=== PATIENT | male | born 1960 | race Caucasian/White ===

== ENCOUNTER 2019-05-15 09:52 | Emergency (ER) | payer BC, OTHER ==
--- OUTSIDE RECORDS SUMMARY | 2019-05-15 10:56 | XMS REPORT | Continuity of Care Document ---
:1960 External Reference #:[id number] Author Name FROY [place] (transmitted by agent of provider Hemalatha Yusuf) Address [address] [place] [address] Care Team Providers Name Role Phone Orion Milner MD - Internal Medicine Care Team Information Land Sales Agent Catrachito Chinchilla MD - Gastroenterology Care Team Information Land Sales Agent [phone] Kraig Sanford MD - Care Team Information Land Sales Agent [phone] [facility] - Physical Care Team Information Land Sales Agent [phone] Medicine & Rehabilitation Kay Kerns PA - Physician Marine Underwriter Care Team Information Land Sales Agent [phone] Problems Active Problems Provider Date Type 2 diabetes mellitus Onset: 11/26/2017 Gout Onset: 09/07/2013 Essential hypertension Onset: 03/30/2013 Hyperlipidemia Onset: 03/30/2013 Peptic reflux disease Onset: 03/30/2013 Acute respiratory failure FROY [place] Onset: 06/05/2018 Sepsis FROY [place] Onset: 06/05/2018 History of alcohol abuse FROY [place] Onset: 06/24/2018 Social History Type Date Description Comments Sex Unknown ETOH Use Currently consumes 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 Tobacco Use Start: Unknown Patient is a former End Date: 2004 (age End: Unknown smoker 15 years) Recreational Drug Use Denies Drug Use Smoking Status Reviewed: 05/10/19 Patient is a former End Date: 2004 (age smoker 15 years) Exercise Type/Frequency Exercises sporadically Allergies, Adverse Reactions, Alerts Description No Known Drug Allergies Medications Active Medications SIG Qnty Indications Ordering Provider Date Metformin HCL ER 3 by mouth every 30tabs Mauri 12/27/2015 750mg day MD David Tablets ER 24HR Diovan 1 by mouth every 90tabs E11.9 Mauri 09/07/2013 320mg Tablets day MD David Allopurinol Take 1 Tablet 90tabs M10.9 Mauri 09/07/2013 300mg Daily MD David Tablets Crestor take 1 tablet by 90tabs E78.5 Mauri 08/19/2011 10mg Tablets mouth every day MD David Immunizations CPT Code Status Date Vaccine Lot # [id number] Given 02/17/2009 Tdap - Tetanus/Diptheria/Acellular Pertussis Vital Signs Date Vital Result Comment 05/10/2019 3:44pm Weight 177.44 lb BP Systolic Sitting 124 mmHg BP Diastolic Sitting 70 mmHg 12/23/2018 3:36pm Height 66.6 inches 5'6.60" Weight 178.38 lb BP Systolic Sitting 130 mmHg BP Diastolic Sitting 70 mmHg Respiratory Rate 12 /min Body Temperature 99.0 F BMI (Body Mass Index) 28.3 kg/m2 Results Description No Information Available Procedures Date Code Description Status 06/17/2011 97617732 Colonoscopy Completed Medical Devices Description No Information Available Encounters Type Date Location Provider Dx Diagnosis Office Visit 12/23/2018 [facility] FROY [place] Z00.01 Encounter for 3:30p general adult medical exam w abnormal findings E11.9 Type 2 diabetes mellitus without complications M10.00 Idiopathic gout, unspecified site E78.5 Hyperlipidemia, unspecified I10 Essential (primary) hypertension Z12.11 Encounter for screening for malignant neoplasm of colon Assessments Date Code Description Provider 05/10/2019 E78.5 Hyperlipidemia, unspecified FROY Montana 05/10/2019 I10 Essential (primary) hypertension FROY Montana 05/10/2019 M10.00 Idiopathic gout, unspecified site FROY Montana 05/10/2019 E11.8 Diabetes mellitus FROY Montana 05/10/2019 J06.9 Upper respiratory infection FROY Montana 12/23/2018 Z00.01 Encounter for general adult medical examination with FROY Montana abnormal findings 12/23/2018 E11.9 Type 2 diabetes mellitus without complications FROY Montana 12/23/2018 M10.00 Idiopathic gout, unspecified site FROY [place] 12/23/2018 E78.5 Hyperlipidemia, unspecified FROY Montana 12/23/2018 I10 Essential (primary) hypertension FROY [place] 12/23/2018 Z12.11 Encounter for screening for malignant neoplasm of FROY Montana colon Plan of Treatment Future Appointment(s):09/08/2019 3:45 pm - FROY Montana at [facility] - Kay Kerns PAE78.5 Hyperlipidemia, [id number] Essential (primary) hypertensionFollow up:3 TO 4 [id number] Idiopathic gout, unspecified siteE11.8 Diabetes mellitusNew Labs:Basic Metabolic Panel, Ordered: 05/10/19Hemoglobin A1c (Glyco HGB), Ordered: 05/10/19J06.9 Upper respiratory infection Functional Status Description No Information Available Mental Status Description No Information Available Referrals Description No Information Available
[2019-05-15 11:44] LABS: Influenza B Molecular POSITIVE (Negative)
--- NOTE | 2019-05-15 12:05 | UC ---
Respiratory Complaint HPI - HPI Summary HPI Summary: Per central communications specialist: "CORLEY, cough, pain with cough, runny nose, fever, body aches" -here w/ his who is ill as well. -sx started 6 days ago w/ CORLEY - called in to work x 2 days at that time. -hasnt taken any BRE, APAP all week -no flu shot - says he never gets sick. -non smoker, -emeli asthma, no copd - History of Current Complaint Chief Complaint: UCRespiratory Stated Complaint: CORLEY,COUGH,FEVER Time Seen by Provider: 05/15/19 11:44 Pain Intensity: 10 - Allergies/Home Medications Allergies/Adverse Reactions: Allergies Allergy/AdvReac Type Severity Reaction Status Date / Time No Known Allergies Allergy Verified 05/15/19 11:06 Home Medications: Home Medications Metformin HCl [Glumetza] 1,000 mg PO DAILY 01/14/12 [History Confirmed 05/15/19] Rosuvastatin Calcium [Crestor] 10 mg PO DAILY 01/14/12 [History Confirmed ] Valsartan [Diovan] 160 mg PO DAILY 01/14/12 [History Confirmed 05/15/19] Albuterol 2.5MG/3ML (0.083%)* [Ventolin 2.5 MG/3 ML NEB.REEMA*] 2.5 mg INH Q4H #1 neb.reema 05/15/19 [Rx] Amoxicillin/Clavulanate TAB* [Augmentin TAB 875*] 875 mg PO BID #20 tab [Rx] methylPREDNISolone [Medrol Dosepak 4 MG*] 4 mg PO DAILY #1 jamey 05/15/19 [Rx] PMH/Surg Hx/FS Hx/Imm Hx Previously Healthy: Yes Endocrine History: Diabetes, Dyslipidemia Cardiovascular History: Hypertension - Surgical History Surgical History: Yes Surgery Procedure, Year, and Place: LEFT SHOULDER SURGERY - Family History Known Family History: Positive: Hypertension, Diabetes - Social History Alcohol Use: Daily Substance Use Type: None Smoking Status (MU): Never Smoked Tobacco Review of Systems All Other Systems Reviewed And Are Negative: Yes Constitutional: Positive: Fever, Chills, Fatigue Skin: Positive: Negative. Negative: Rash Eyes: Positive: Negative ENT: Positive: Sore Throat, Nasal Discharge Respiratory: Positive: Cough. Negative: Shortness Of Breath Cardiovascular: Positive: Negative. Negative: Palpitations, Chest Pain Gastrointestinal: Positive: Negative Genitourinary: Positive: Negative Neurovascular: Positive: Negative Musculoskeletal: Positive: Arthralgia, Myalgia Neurological/Mental Status: Positive: Negative Psychological: Positive: Negative Is Patient Immunocompromised?: No Physical Exam Triage Information Reviewed: Yes Appearance: Well-Nourished, Ill-Appearing - mild- mod Vital Signs: Initial Vital Signs Temp 100.2 F 05/15/19 10:58 Pulse 112 05/15/19 10:58 Resp 20 05/15/19 10:58 BP 146/63 05/15/19 10:58 Pulse Ox 96 05/15/19 10:58 Vital Signs Reviewed: Yes Eye Exam: Normal ENT Exam: Normal ENT: Positive: Pharynx normal, TMs normal. Negative: TM bulging, TM dull, TM red, Sinus tenderness Neck exam: Normal Neck: Positive: Supple, Nontender, No Lymphadenopathy Respiratory Exam: Normal Respiratory: Positive: Chest non-tender, No respiratory distress, No accessory muscle use, Decreased breath sounds, Rhonchi - RLL Cardiovascular Exam: Normal Cardiovascular: Positive: RRR Abdominal Exam: Normal Abdomen Description: Positive: Nontender, Soft Musculoskeletal Exam: Normal Neurological Exam: Normal Psychological Exam: Normal Skin Exam: Normal Skin: Negative: Rashes Respiratory Course/Dx - Course Course Of Treatment: + rapid flu B -CXR + RML pneumonia -appears more comfortable and breathing normally s/p BRE 800mgs. CORLEY significantly reduced. denies any CKD, PUD or CI to Nsaids. -reports last a1c 6.3%. does nort check home blood sugars but does have meter and supplies and agrees to do so while sick - has neb mmachine he can use, we have given him tubing. -offered ER eval for potential admission bc DM, + pneumonia and flu. he refsues ER. doesnt want to go but does understand that he should go if sx worsen or not improved after 24 hrs of treatment -augmentin 875mgs po bid x 10 d, medrol dose pk (watch BSs) and probiotic -stressed improartnce of f/u CXR to r/o post-obtsructive pneumonia. -they v/u - Differential Dx/Diagnosis Differential Diagnosis/HQI/PQRI: Asthma, Bronchitis, Influenza, Lower Resp Infection Provider Diagnosis: Influenza, Pneumonia Discharge ED - Sign-Out/Discharge Documenting (check all that apply): Patient Departure All imaging exams completed and their final reports reviewed: No Studies - Discharge Plan Condition: Stable Disposition: HOME Prescriptions: Albuterol 2.5MG/3ML (0.083%)* [Ventolin 2.5 MG/3 ML NEB.REEMA*] 2.5 mg INH Q4H #1 neb.reema Amoxicillin/Clavulanate TAB* [Augmentin TAB 875*] 875 mg PO BID #20 tab methylPREDNISolone [Medrol Dosepak 4 MG*] 4 mg PO DAILY #1 jamey Patient Education Materials: Influenza (DC), Bacterial Pneumonia (ED) Forms: *Work Release Referrals: Kay Kerns PA [Primary Care Provider] - 2 Days Additional Instructions: The chest xray shows pneumonia on the right side. Please make sure to get a follow up chest xray in 4-6 wks to make sure the lungs are clear after the pneumonia clears. Using the albuterol w/ your 's machine will help every 4- 6 hours. Ibuprofen/tylenol can help with the pain/discomfort/fever, although ibuporfen should not be continued fci bc of danger to your kidneys, especially w / diabetes. -Your flu tst is also positive. -please check your blood sugars 1-2x/day while sick and go to the ER if > 400. The infections can make your blood sugars go very high leading to a diabetic coma. -Drink plenty of fluids and rest. -You should not return to work bc you are contagious with the flu. I am giving you a note for 05/15 and 05/16. You should get clearance from your PCP to return. Please follow up with them on 05/16. -blood sugar is 175 fasting today. -I am prescribing a low dose of prednisone that will help your symptoms. There is a risk of the blood sugars rising w/ the use of prednisone, another reason to check your blood sugars. -There are potential side effects of prednisone including but not limited to increased energy/decreased sleep, stomach upset, irritability, hunger, elevated blood sugars and blood pressures, problems with your adrenal glands and cut off of the blood supply going to your hip. The latter symptoms are more typical of fci or frequent use of steroids. -We talked about a transfer to the ER for possible admission, however you declined at this time. Please go to the ER if your symptoms worsen or do not improve in 24 hours. This can be potentially very dangerous. It is recommended that you take a probiotic daily while you are on antibiotics. A few common brands that you can buy over the counter are colon health, align and florastor. These can help prevent a colon infection called c diff that can be associated with antibiotic use. - Billing Disposition and Condition Condition: STABLE Disposition: Home
[2019-05-15] MEDS ORDERED: Ibuprofen TAB* 600 MG PO ONE (12:24)
[2019-05-15] MEDS ORDERED: Ibuprofen TAB* 400 MG PO ONE (12:27)
[2019-05-15 13:12] VITALS: BP 148/61
== END 2019-05-15 14:05 | disposition home or self-care (01) ==
LOC: UCCORT 09:52
DX: J11.1 Influenza due to unidentified influenza virus with other respiratory manifestations (principal); J18.9 Pneumonia, unspecified organism; E11.9 Type 2 diabetes mellitus without complications; I10 Essential (primary) hypertension; E78.5 Hyperlipidemia, unspecified; Z79.84 Long term (current) use of oral hypoglycemic drugs; Z79.899 Other long term (current) drug therapy
CPT/HCPCS: 71046; 99202; A9270-GY; G0463